=== PATIENT | male | born 1990 | race Caucasian/White ===

== ENCOUNTER 2022-03-27 03:31 | Emergency (ER) | payer OTHER, SELFPAY ==
[2022-03-27 03:42] VITALS: BP 103/65; PULSE 139; RESP 22; TEMP 37.4; O2SAT 94; BMI 25.8
[2022-03-27 03:47] VITALS: BP 94/61; PULSE 102; RESP 19; O2SAT 96
[2022-03-27 03:57] LABS: COVID-19 Test Positive (Negative)
[2022-03-27 04:04] LABS: IDNOW Serial# 16C4AD1C; Influenza A Negative (Negative); Influenza B2 Positive (Negative)
--- NOTE | 2022-03-27 04:25 | ED.GENADULT ---
HPI - General Adult General Chief complaint: Upper Respiratory Symptoms Stated complaint: migraine, back pain, chills Time Seen by Provider: 03/27/22 03:44 Source: patient Mode of arrival: ambulatory Limitations: no limitations History of Present Illness HPI narrative: Patient not vaccinated against COVID been complaining of headache body aches low-grade fever for last 24 hours no cough or shortness of breath no nausea no vomiting no diarrhea Related Data Previous Rx's Medication Instructions Recorded ibuprofen 600 mg tablet 600 mg PO Q6H PRN #30 tab 03/27/22 oseltamivir 75 mg capsule (Tamiflu) 75 mg PO BID 5 Days #10 cap 03/27/22 Allergies Allergy/AdvReac Type Severity Reaction Status Date / Time seafood Allergy Unknown Verified 03/27/22 03:42 Review of Systems Review of Systems: Yes all other systems are reviewed and are negative [facility] Social History Social History Advance Directives: No Physical Exam ED Vital Signs: Vital Signs - 24 hr 03/27/22 03:42 03/27/22 03:47 Temperature 99.3 F Pulse Rate 139 H 102 H Respiratory Rate 22 H 19 Blood Pressure 103/65 94/61 Pulse Oximetry 94 96 BMI result Body Mass Index 25.8 Appearance: Alert. Oriented X3. No acute distress. ENT: Pharynx normal. Oral Mucosa moist Neck: Normal inspection. Neck supple. CVS: Normal heart rate and rhythm. Pulses normal. Respiratory: No respiratory distress. Equal air entry bilateral, no wheezing/rales/rhonchi Abdomen: Soft and nontender. Bowel sounds are present, Skin: Skin warm and dry. Normal skin color. Normal skin turgor. Medical Decision Making Lab Data Lab results reviewed: Yes I reviewed the patient's lab results. Labs: Lab Results 03/27/22 03/27/22 Range/Units 03:39 03:39 COVID-19 ([facility]) Positive A (Negative) COVID-19 Clin Com See Note Influenza Type A (YISEL) Negative (Negative) Influenza Type B (YISEL) Positive A (Negative) Influenza A & B Note See Note Discharge Plan Discharge Clinical Impression: COVID-19, Influenza B Patient Disposition: Home, Self-Care Instructions: Influenza (ED), COVID-19 (Coronavirus Disease 2019) (ED) Additional Instructions: Social distancing as advised Tylenol/Motrin for fever or body aches Tamiflu as prescribed Report to the ER if worsening of shortness of breath Prescriptions: New oseltamivir [Tamiflu] 75 mg capsule 75 mg PO BID 5 Days Qty: 10 0RF ibuprofen 600 mg tablet 600 mg PO Q6H PRN (Reason: pain) Qty: 30 0RF
[2022-03-27] MEDS: Ibuprofen 600 MG TABLET PO (04:34)
[2022-03-27] MEDS: Oseltamivir Phosphate 75 MG CAPSULE PO (04:34)
[2022-03-27 04:37] VITALS: BP 102/36; PULSE 84; RESP 18; O2SAT 98
== END 2022-03-27 04:41 | disposition home or self-care (01) ==
PROVIDERS: Emergency Provider Internal Medicine
DX: U07.1 COVID-19 (principal); J10.1 Influenza due to other identified influenza virus with other respiratory manifestations; G43.909 Migraine, unspecified, not intractable, without status migrainosus; Z79.899 Other long term (current) drug therapy
CPT/HCPCS: 87502; 87635; 99283

== ENCOUNTER 2022-03-31 08:13 | Outpatient (REF) | payer OTHER, SELFPAY ==
[2022-03-31 08:43] LABS: COVID-19 Test Positive (Negative)
== END 2022-03-31 08:14 | disposition home or self-care (01) ==
LOC: HO.LAB 08:13
PROVIDERS: Visit Provider Internal Medicine
DX: Z20.822 Contact with and (suspected) exposure to COVID-19 (principal)
CPT/HCPCS: 87635; C9803

== ENCOUNTER 2022-08-08 09:28 | Emergency (ER) | payer OTHER, SELFPAY ==
[2022-08-08 09:37] VITALS: BP 130/80; PULSE 100; RESP 19; TEMP 37.4; O2SAT 97; BMI 25.7
[2022-08-08 10:52] LABS: Strep A Nucleic Acid Positive (Negative)
--- NOTE | 2022-08-08 11:00 | ED_ITS ---
HPI - URI/Sore Throat General Chief Complaint: Upper Respiratory Symptoms Stated Complaint: throat infection Time Seen by Provider: 08/08/22 10:50 Source: patient Mode of arrival: ambulatory Limitations: no limitations History of Present Illness HPI Narrative: 31-year-old male with no pertinent PMH presenting with sore throat and ear pain since Thursday. Patient states that his son was recently home sick with ear infection. Denies headache, fever, nausea, vomiting, diarrhea, shortness of breath, chest pains, dizziness, nasal congestion, rhinorrhea, cough. Denies difficulty swallowing. Patient reports he took a home COVID test was negative. Patient states that he has been taking leftover amoxicillin 500 mg twice daily from when he had tooth pain. MD elicited complaint: sore throat Onset (ago): day(s) Consistency: constant Severity: moderate Able to tolerate fluids by mouth: Yes Exacerbating factors: swallowing and speaking Relieving factors: nothing Context: sick contacts Associated symptoms: ear pain Treatments prior to arrival: antibiotics (Left over from tooth infection) Related Data Previous Rx's Medication Instructions Recorded ibuprofen 600 mg tablet 600 mg PO Q6H PRN pain #30 tabs 03/27/22 oseltamivir 75 mg capsule (Tamiflu) 75 mg PO BID 5 days #10 caps 03/27/22 amoxicillin 875 mg-potassium 1 tab PO BID 10 days #20 tabs 08/08/22 clavulanate 125 mg tablet Allergies Allergy/AdvReac Type Severity Reaction Status Date / Time seafood Allergy Unknown Verified 03/27/22 03:42 Review of Systems Review of Systems: Constitutional : No Fever, No Chills, No fatigue, No Malaise ENT/Mouth : + sore throat, + ear pain bilaterally, No runny nose Eyes: No Discharge Cardiovascular : No Chest Pain, No SOB Respiratory : No Cough, No Sputum, No Wheezing, No Smoke Exposure, No Dyspnea Gastrointestinal : No Nausea, No Vomiting, No Diarrhea Genitourinary : No irregular bleeding, No Dysuria, No Urinary Frequency, No Hematuria, No Urinary Incontinence, No Urgency, No Flank Pain, Musculoskeletal : No Myalgia Skin : No rash Neuro : No Headache Yes all other systems are reviewed and are negative PMFSH Past Medical History Attestation statement: The following information was validated with the patient. Source: old records reviewed and nursing notes reviewed Social History Social History Advance Directives: Yes Advance Directives Information Provided: Yes Advance Directives on File: No Physical Exam Vital Signs: Vital Signs: Last Vital Signs Temp 99.3 F 08/08/22 09:37 Pulse 100 08/08/22 09:37 Resp 19 08/08/22 09:37 BP 130/80 08/08/22 09:37 Pulse Ox 97 08/08/22 09:37 O2 Del Method 08/08/22 09:37 BMI result Body Mass Index 25.7 Vital signs reviewed and all vitals within normal limits at this time. A ppearance: Alert. Oriented X3. No acute distress. Head: Normal external exam. Normocephalic. Atraumatic. Eyes: PERRLA. EOMI. Conjunctiva and sclera normal. Eyelids normal. ENT: + bilateral exudates,+ mild tonsillar enlargement and erythema, + bilateral serous effusions. Uvula midline. Moist mucous membranes. No trismus/drooling/stridor noted. Patient tolerating secretions well. Not cons istent with peritonsillar/pharyngeal abscess. Normal voice. Neck: Normal inspection. Neck supple. FROM. CVS: Normal heart rate and rhythm. Respiratory: No respiratory distress. Painless inspiration. Skin: Skin warm and dry. Normal skin color. Normal skin turgor. No rashes/lesions/lacerations noted. Extremities: Extremities exhibit normal range of motion. Extremities nontender. Neuro: Oriented X 3. No motor deficit. No sensory deficit. Reflexes normal. Normal steady gait. No focal neuro deficits noted. Course Course Course Narrative: 31-year-old male presenting with his sore throat and ear pain since Thursday. On exam, VSS, no respiratory distress or work of breathing, pharynx notable for exudates bilaterally as well as tonsillar enlargement. Patient reports taking a COVID test at home and negative, not interested in a COVID test at this time. Serology positive for strep group A. At this time, patient is stable for discharge with antibiotic treatment and PCP follow-up. MDM - URI/Sore Throat Medical Records Attestation: I reviewed the patient's medical records. Lab Data Attestation: I reviewed the patient's lab results. Labs: Lab Results 08/08/22 Range/Units 09:42 S. pyogenes GrpA YISEL Positive A (Negative) Discharge Plan Discharge Clinical Impression: Acute streptococcal pharyngitis Patient Disposition: Home, Self-Care Instructions: Strep Throat (ED) Additional Instructions: Please take antibiotics as prescribed. Please take the full course of antibiotics, even if you feel better. Please follow-up with your PCP in the next 2-3 days. If you develop new or worsening symptoms, please call 911 or report to the emergency department for further evaluation Prescriptions: New amoxicillin-pot clavulanate 875-125 mg tablet 1 tab PO BID 10 Days Qty: 20 0RF No Action oseltamivir [Tamiflu] 75 mg capsule 75 mg PO BID 5 Days Qty: 10 0RF ibuprofen 600 mg tablet 600 mg PO Q6H PRN (Reason: pain) Qty: 30 0RF Stand Alone Forms: Work/School Release Interventions: ED Discharge Assessment Last Done: 08/08/22 11:29
== END 2022-08-08 11:29 | disposition home or self-care (01) ==
PROVIDERS: Emergency Provider Emergency Medicine Emergency Medical Services
DX: J02.0 Streptococcal pharyngitis (principal)
CPT/HCPCS: 36415; 87651; 99283

== ENCOUNTER 2025-10-11 07:40 | Outpatient (REF) | payer BC, SELFPAY ==
[2025-10-11 07:49] LABS: MANUAL DIFF FLAG NO
[2025-10-11 08:02] LABS: Hematocrit 45.5 % (42.0-52.0); Hemoglobin 15.7 g/dl (14.0-18.0); Imm Gran Abs Auto 0.01 X10*3/uL (0.00-0.03); Imm Gran Pct Auto 0.2 % (0.0-0.4); Lymphocytes Absolute Auto 1.8 X10*3/uL (1.2-4.9); Mean Corpuscular HGB Conc 34.5 g/dl (31.0-36.0); Mean Corpuscular Hemoglobin 33.1 pg (27.0-33.0); Mean Corpuscular Volume 96.0 fL (80.0-98.0); NRBC Abs Auto 0.000 X10*3/uL (0.0-0.012); NRBC Pct Auto 0.0 /100WBC (0.0-0.2); Platelet Count 193 X10*3/uL (160-400); Red Blood Count 4.74 X10*6/uL (4.60-5.80); White Blood Count 6.5 X10*3/uL (4.8-10.8)
[2025-10-11 08:41] LABS: Alanine Aminotransferase 40 U/L (0-40); Albumin Level 4.8 g/dL (3.5-5.0); Alkaline Phosphatase 58 U/L (39-117); Anion Gap 9 (12-20); Aspartate Amino Transferase 28 U/L (5-37); Blood Urea Nitrogen 11 mg/dL (9-16); Calcium 9.2 mg/dL (8.4-10.2); Carbon Dioxide 31 mmol/L (22-29); Chloride 104 mmol/L (96-108); Cholesterol 198 mg/dL (<200); Estimated Glomerular Filt Rate > 60; HDL Cholesterol 61 mg/dL (>40); Potassium 3.7 mmol/L (3.3-5.1); Sodium 140 mmol/L (135-145); Total Protein 7.3 g/dL (6.5-8.0); Triglycerides 59 mg/dL (<150)
[2025-10-11 09:00] LABS: Free T4 (Free Thyroxine) 1.04 ng/dL (0.71-1.85); Thyroid Stimulating Hormone 1.17 uIU/mL (0.32-4.0)
--- OUTSIDE RECORDS SUMMARY | 2025-10-11 15:07 | XMS_ITS ---
Author Name [facility] Organization Unknown Care Team Organization Name Specialty Phone Email Start Date End Da te [facility] 09/30/2022 07/11/20 24
== END 2025-10-11 07:41 | disposition home or self-care (01) ==
LOC: HO.LAB 07:40
PROVIDERS: Visit Provider Nurse Practitioner Family
DX: Z13.1 Encounter for screening for diabetes mellitus (principal); Z13.6 Encounter for screening for cardiovascular disorders; F32.A Depression, unspecified
CPT/HCPCS: 36415; 80053; 80061; 83036; 84439; 84443; 85025